=== PATIENT | male | born 1985 | race Caucasian/White ===

== ENCOUNTER 2017-04-26 10:49 | Inpatient (IN) | payer OTHER, BC ==
[2017-04-13 11:01] VITALS: BMI 43.0
--- NOTE | 2017-04-13 11:37 | PAT Medication Instructions ---
Service Date Apr 13, 2017. Current Home Medication List Acetaminophen (Tylenol), 2 TAB PO Q6 PRN for Pain Duloxetine HCl (Cymbalta), 1 CAP PO QAM Gabapentin (Neurontin), 300 MG PO TID PRN for Pain Medication Instructions For Your Scheduled Surgery - Take the following medications the morning of surgery with a sip of water: Acetaminophen (Tylenol), 2 TAB PO Q6 PRN for Pain (if needed) Duloxetine HCl (Cymbalta), 1 CAP PO QAM Gabapentin (Neurontin), 300 MG PO TID PRN for Pain (if needed) - Take the following medications as scheduled the night before surgery: Gabapentin (Neurontin), 300 MG PO TID PRN for Pain (if needed) Acetaminophen (Tylenol), 2 TAB PO Q6 PRN for Pain (if needed) If you have any questions please call us at [phone] or [phone] or [phone]
--- NOTE | 2017-04-13 12:07 | DIAGNOSTIC IMAGING REPORT ---
CHEST PREADMISSION(PA/LAT) CLINICAL HISTORY: PAT preoperative evaluation COMPARISON STUDY: No previous studies for comparison. FINDINGS: The bones soft tissues and hemidiaphragms are normal. The cardiomediastinal silhouette is normal. The lungs are clear. The pulmonary vasculature is normal. IMPRESSION: Negative chest. The above report was generated using voice recognition software. It may contain grammatical, syntax or spelling errors. Electronically signed by: Rachid Britton M.D. 04/13/2017 12:06 PM Dictated Date/Time: 04/13/2017 12:05 PM
[2017-04-13 12:15] LABS: BASO % 0.9 %; BASO ABS # 0.06 K/uL (0-0.2); COMPLETE YES; EOS % 3.1 %; HEMATOCRIT 43.1 % (42-52); IG% 0.4 %; LYMPH % 30.3 %; LYMPH ABS # 2.06 K/uL (1.2-3.4); MEAN CELL VOLUME 92.3 fL (80-100); MEAN CORPUSCULAR HEMOGLOBIN 31.9 pg (25-34); MEAN CORPUSCULAR HGB CONC 34.6 g/dl (32-36); MEAN PLATELET VOLUME 9.8 fL (7.4-10.4); MONO % 9.3 %; PLATELET COUNT 273 K/uL (130-400); RED BLOOD COUNT 4.67 M/uL (4.7-6.1)
[2017-04-13 12:17] LABS: URINE APPEARANCE CLEAR (CLEAR); URINE BILIRUBIN NEG (NEG); URINE COLOR YELLOW; URINE NITRITE NEG (NEG); URINE PH 6.5 (4.5-7.5); URINE SPECIFIC GRAVITY 1.029 (1.000-1.030); UROBILINOGEN NEG (NEG); ZZUR CULT IF INDIC CLEAN CATCH NO
[2017-04-13 12:20] LABS: MANUAL MICROSCOPIC REQUIRED? NO; REVIEW REQ? NO
[2017-04-13 12:31] LABS: BUN/CREATININE RATIO 10.7 (10-20); CALCIUM 9.1 mg/dl (8.5-10.1); CREATININE 0.87 mg/dl (0.60-1.40); POTASSIUM 4.3 mmol/L (3.5-5.1)
[~2017-04-26] VITALS: Ht 175.3 cm; Wt 132.6 kg
[~2017-04-26 10:49] MED LIST: ACET-1256 PO; ATROPINE SULFATE 0.1 MG/ML 5ML SYR IV PRN; CEFAZOLIN 3000 MG/65 ML D5W IV SCH; CYM/30 PO; EpHEDrine SULFATE INJ 50 MG/ML AMP IV PRN; FENTANYL CITRATE INJ 50 MCG/1 ML 2 ML VIAL IV PRN; GABA-113 PO; HYDROmorphone INJ 1 MG/ML SYR IV PRN; LACTATED RINGER'S 1000ML 1,000 ML IV SCH; ONDANSETRON INJ 2 MG/ML 2 ML VIAL IV PRN
[2017-04-26 11:48] VITALS: BP 132/81; PULSE 77; TEMP 36.6; O2SAT 96; Ht 175.3 cm; Wt 132.6 kg
[2017-04-26] MEDS ORDERED: FENTANYL CITRATE INJ 50 MCG/1 ML 2 ML VIAL ONE ×3 (12:54→16:15)
[2017-04-26] MEDS ORDERED: MIDAZOLAM HCL 1 MG/ML 2ML VIAL ONE (12:54)
--- NOTE | 2017-04-26 13:16 | History & Physical Bridge Note ---
H&P Re-Evaluation Bridge Note: I have examined the patient, reviewed the History & Physical and in the interval since the performance of the History & Physical I have noted the following changes of clinical significance: No changes noted
--- NOTE | 2017-04-26 13:17 | History and Physical ---
History & Physical Date Apr 26, 2017. Chief Complaint Back and leg pain History of Present Illness The patient is a 32 year old male with complaints of back and leg pain Additional History Hepatic Disease: No Endocrine Disorder: No Kidney Disease: No Hypertension: No Heart Disease: No Bleeding Tendencies: No Infectious Diseases: No Allergies Coded Allergies: No Known Allergies (Unverified , 04/26/17) Home Medications Scheduled Duloxetine HCl (Cymbalta), 1 CAP PO QAM Scheduled PRN Acetaminophen (Tylenol), 2 TAB PO Q6 PRN for Pain Gabapentin (Neurontin), 300 MG PO TID PRN for Pain Physical Examination Skin: warm/dry, no rash Eyes: normal inspection, EOMI, sclerae normal ENT: normal ENT inspection, pharynx normal Head: normocephalic, atraumatic Neck: supple, no adenopathy, trachea midline Respiratory/Chest: lungs clear, normal breath sounds, no respiratory distress Cardiovascular: regular rate, rhythm, no edema, no murmur Abdomen / GI: normal bowel sounds, non tender Back: normal inspection Extremities: normal inspection, normal range of motion Neurologic/Psych: no motor/sensory deficits, alert, normal reflexes, oriented x 3 Diagnosis Lumbar spinal stenosis Plan of Treatment Lumbar decompression fusion L5-S1
[2017-04-26] MEDS ORDERED: BUPIVACAINE/EPINEPHRINE 0.5% MPF 1:200,000 30 ML VIAL ONE (13:35)
[2017-04-26] MEDS ORDERED: BACITRACIN 50000 UNIT VIAL ONE (13:35)
[2017-04-26] MEDS ORDERED: HYDROmorphone INJ 2 MG/ML SYR/VIAL ONE ×2 (14:08→16:50)
[2017-04-26] MEDS ORDERED: PHENYLEPHRINE 100MCG/ML 5ML SYR ONE (14:32)
[2017-04-26] MEDS ORDERED: LARYING-O-JET KIT (LTA) ONE ×2 (14:32)
[2017-04-26] MEDS ORDERED: ONDANSETRON INJ 2 MG/ML 2 ML VIAL ONE (14:32)
[2017-04-26] MEDS ORDERED: ROCURONIUM BROMIDE 10 MG/ML 5 ML VIAL IV ONE (14:32)
[2017-04-26] MEDS ORDERED: PROPOFOL IV EMULSION 10 MG/ML 20 ML VIAL IV ONE (14:32)
[2017-04-26] MEDS ORDERED: ESMOLOL HCL 10 MG/ML 10 ML VIAL ONE (14:32)
[2017-04-26] MEDS ORDERED: DEXAMETHASONE SOD INJ 4 MG/ML VIAL ONE (14:32)
[2017-04-26] MEDS ORDERED: LIDOCAINE HCL 2% 2 ML VIAL (20MG/ML) ONE (14:32)
[2017-04-26] MEDS ORDERED: FLOSEAL HEMOSTATIC MATRIX 10ML TOP ONE (15:25)
[2017-04-26] MEDS ORDERED: SODIUM CHLORIDE 0.9% 1000ML 1,000 ML IV SCH (15:31)
--- NOTE | 2017-04-26 15:37 | [facility] Operative Report ---
Operative Report Operative Date Apr 26, 2017. Pre-Operative Diagnosis Lumbar Spinal Stenosis Post-Operative Diagnosis Same Procedure(s) Performed #1 lumbar decompression medial facetectomies foraminotomies L4 5 L5-S1. #2 posterior spinal fusion L5-S1. #3 placement posterior inch rotation L5-S1. #4 interbody fusion L5-S1. #5 placement peek cage 12 x 26 mm at L5-S1. #6 placement of locally harvested morcellized autograft and posterior gutters. #7 placement of ostial amp bone graft in the interbody space and posterior lateral gutters. Surgeon Dr. Braden Estrada Continuous Process Machine Operator Surgeon(s) Estephania Allred PA-C Findings Herniated was pulposus spinal stenosis L5-S1 Specimens none per surgeon Description of Procedure Patient was met with preoperatively case discussed all questions are dressed. That point patient was taken to the operative suite underwent intubation placed in a prone position the Shriaz table on top Armin frame. All bony prominences were well-padded eyes inspected to ensure no external pressure. Lumbar spines prepped and draped nostril fashion. Sharp dissection with the assistance of Bovie cautery was performed onto an exposing the lamina and transverse processes of L5 and the sacral alar bilaterally. From a caudal to cephalad fashion complete laminectomy of L5 partial laminectomy of L4 was performed. We performed medial facetectomies foraminotomies to address severe neural encroachment foraminal disease. Identified a massive disc herniation 51 level on the left with significant encroachment of the traversing S1 nerve root. This was removed in its entirety. After this complete pedicle screws are placed in L5-S1 levels bilaterally with assistance of fluoroscopy the purposes mo placed. Through a transforaminal port and left complete discectomy was performed and plate created to subcortical bleeding bone and a 12 x 26 mm peek cage filled with ostial amp tapped in position. Rods were then locked and final position bilaterally. The transverse processes of L5 and the sacral alar burred to subcortical bleeding bone. Ostial amp and locally harvested morcellized autograft was placed in the posterior lateral gutters. 15 round MURTAZA drain inserted. Incision was then closed with 1 Vicryl in the fascia 2-0 Vicryl subcutaneously for Monocryl for final skin closure Steri- Strip sterile dressing placed patient with continued PACU stable condition. Please note Estephania Vernon was present throughout the entire procedure involved in patient positioning complex portions of the procedure and final skin closure. I attest to the content of the Intraoperative Record and any orders documented therein. Any exceptions are noted below.
--- NOTE | 2017-04-26 15:43 | DIAGNOSTIC IMAGING REPORT ---
LUMBAR SPINE, INTRAOPERATIVE FLUOROSCOPY HISTORY: L5-S1 decompression and fusion. FLUOROSCOPY TIME: 22 seconds. FINDINGS: Intraoperative fluoroscopy was provided for the lumbar spine. 2 fluoroscopic spot images were obtained. Posterior decompression and fusion at L5-S1 without pedicle screws and rods. The hardware appears intact. IMPRESSION: Fluoroscopy provided for a L5-S1 posterior decompression and fusion. Electronically signed by: Omega Love M.D. 04/26/2017 3:42 PM Dictated Date/Time: 04/26/2017 3:41 PM
[2017-04-26] MEDS ORDERED: ACETAMINOPHEN 500 MG TAB PO PRN (15:45)
[2017-04-26] MEDS ORDERED: NALOXONE HCL 0.4 MG/1 ML VIAL/CARP IV PRN ×2 (15:45)
[2017-04-26] MEDS ORDERED: DO NOT ADMINISTER FLU VACCINE PRN ×3 (15:45)
[2017-04-26] MEDS ORDERED: MAGNESIUM HYDROXIDE SUSP 30 ML UDC PO PRN (15:45)
[2017-04-26] MEDS ORDERED: PROMETHAZINE HCL INJ 12.5 MG in SODIUM CHLORIDE 0.9% 50ML 50 ML IV PRN (15:45)
[2017-04-26] MEDS ORDERED: ALUMINUM/MAGNESIUM SUSP 30 ML UDC PO PRN (15:45)
[2017-04-26] MEDS ORDERED: hydrOXYzine HCL 25 MG TAB PO PRN (15:45)
[2017-04-26] MEDS ORDERED: GABAPENTIN 300 MG CAP PO PRN (15:45)
[2017-04-26] MEDS ORDERED: LORAZEPAM 0.5 MG TAB PO PRN (15:45)
[2017-04-26] MEDS ORDERED: BISACODYL 10 MG SUPP PR PRN (15:45)
[2017-04-26] MEDS ORDERED: METOCLOPRAMIDE HCL INJ 5 MG/ML 2 ML VIAL IV PRN (15:45)
[2017-04-26] MEDS ORDERED: FAMOTIDINE 20 MG TAB PO PRN (15:45)
[2017-04-26] MEDS ORDERED: ONDANSETRON INJ 2 MG/ML 2 ML VIAL IV PRN ×2 (15:45→17:00)
[2017-04-26] MEDS ORDERED: DO NOT ADMINISTER PNEUMOCOCCAL VACCINE PRN ×2 (15:45)
[2017-04-26] MEDS ORDERED: ACETAMINOPHEN IV 100 ML IV PRN (15:45)
[2017-04-26] MEDS ORDERED: LORAZEPAM INJ 0.5 MG in SYRINGE 0.75 ML IV PRN (15:45)
[2017-04-26] MEDS ORDERED: SOD PHOSPHATE/SOD BIPHOSPHATE ENEMA 132 ML BTL PR PRN (15:45)
[2017-04-26] MEDS: HYDROmorphone HCL 0.5MG/ML 50 ML CASSETTE IV PRN ×3 (16:19→23:08)
[2017-04-26] MEDS ORDERED: ATROPINE SULFATE 0.1 MG/ML 5ML SYR IV PRN (17:00)
[2017-04-26] MEDS ORDERED: FENTANYL CITRATE INJ 50 MCG/1 ML 2 ML VIAL IV PRN (17:00)
[2017-04-26] MEDS ORDERED: HYDROmorphone INJ 1 MG/ML SYR IV PRN (17:00)
[2017-04-26] MEDS ORDERED: EpHEDrine SULFATE INJ 50 MG/ML AMP IV PRN (17:00)
--- NOTE | 2017-04-26 17:21 | Anesthesiology Progress Note ---
Anesthesia Post Op Note Date & Time Apr 26, 2017 at 17:21 Vital Signs Pain Intensity: 3 Vital Signs Past 12 Hours Date Time Temp Pulse Resp B/P (MAP) Pulse Ox O2 Delivery O2 Flow Rate FiO2 04/26/17 17:10 36.6 84 16 120/66 97 Nasal Cannula 4 Oxymask 04/26/17 17:00 79 16 121/64 96 Nasal Cannula 4 Oxymask 04/26/17 16:50 79 16 137/61 96 Nasal Cannula 4 Oxymask 04/26/17 16:40 80 16 122/70 95 Nasal Cannula 2 Oxymask 04/26/17 16:30 80 16 124/63 95 Nasal Cannula 2 Oxymask 04/26/17 16:20 80 16 127/77 95 Oxymask 10 04/26/17 16:10 80 16 129/96 95 Oxymask 10 04/26/17 16:00 37.1 80 16 114/65 95 Oxymask 10 04/26/17 11:48 36.6 77 18 132/81 96 Room Air Notes Mental Status: alert / awake / arousable, participated in evaluation Pt Amnestic to Procedure: Yes Nausea / Vomiting: adequately controlled Pain: adequately controlled Airway Patency, RR, SpO2: stable & adequate BP & HR: stable & adequate Hydration State: stable & adequate Anesthetic Complications: no major complications apparent
[2017-04-26] MEDS: LACTATED RINGER'S 1000ML 1,000 ML IV SCH ×2 (17:30→21:34)
[2017-04-26 18:05] VITALS: BP 124/69; PULSE 84; TEMP 36.5; O2SAT 98
[2017-04-26 18:35] VITALS: BP 144/81; PULSE 105; TEMP 36.6; O2SAT 97
[2017-04-26 19:35] VITALS: BP 127/75; PULSE 86; TEMP 36.6; O2SAT 95
[2017-04-26 20:45] VITALS: BP 124/71; PULSE 88; TEMP 36.5; O2SAT 96
[2017-04-26] MEDS: DOCUSATE SODIUM/SENNA 50/8.6MG TAB PO SCH (21:18)
[2017-04-26] MEDS: DEXAMETHASONE INJ 6 MG in SYRINGE 0 ML IV SCH (21:18)
[2017-04-26] MEDS: CEFAZOLIN IV 2,000 MG in DEXTROSE 5% 50ML 50 ML IV SCH (21:30)
[2017-04-26 22:52] VITALS: BP 124/73; PULSE 88; TEMP 36.8; O2SAT 92
[2017-04-27 03:38] VITALS: BP 122/76; PULSE 85; TEMP 36.7; O2SAT 92
[2017-04-27] MEDS ORDERED: NURSING VERBAL MED ORDER ONE (04:30)
[2017-04-27] MEDS: CEFAZOLIN IV 2,000 MG in DEXTROSE 5% 50ML 50 ML IV SCH (05:35)
[2017-04-27] MEDS: DEXAMETHASONE INJ 6 MG in SYRINGE 0 ML IV SCH ×2 (05:37→14:07)
[2017-04-27] MEDS ORDERED: DC PCA SCH (06:00)
[2017-04-27] MEDS ORDERED: HYDROmorphone INJ 0.5 MG/0.5 ML SYR IV PRN (06:00)
[2017-04-27 06:07] LABS: BASO % 0.1 %; BASO ABS # 0.01 K/uL (0-0.2); COMPLETE YES; HEMATOCRIT 37.8 % (42-52); IG% 0.2 %; LYMPH % 6.9 %; LYMPH ABS # 1.13 K/uL (1.2-3.4); MEAN CELL VOLUME 89.6 fL (80-100); MEAN CORPUSCULAR HEMOGLOBIN 32.9 pg (25-34); MEAN CORPUSCULAR HGB CONC 36.8 g/dl (32-36); MEAN PLATELET VOLUME 9.2 fL (7.4-10.4); MONO % 3.3 %; NEUT % 89.5 %; PLATELET COUNT 250 K/uL (130-400); RED BLOOD COUNT 4.22 M/uL (4.7-6.1); WHITE BLOOD COUNT 16.46 K/uL (4.8-10.8)
[2017-04-27 06:38] LABS: BUN/CREATININE RATIO 12.6 (10-20); CALCIUM 8.4 mg/dl (8.5-10.1); CREATININE 0.95 mg/dl (0.60-1.40); POTASSIUM 4.4 mmol/L (3.5-5.1)
[2017-04-27] MEDS: OXYCODONE HCL IR 5 MG TAB (IMMEDIATE RELEASE) PO PRN ×4 (07:24→23:52)
[2017-04-27] MEDS: DULOXETINE (CYMBALTA) 30 MG CAP PO SCH (08:59)
--- NOTE | 2017-04-27 09:01 | Progress Note ---
Progress Note Date of Service Apr 27, 2017. Progress Note Pain is controlled. Leg symptoms improved. On exam he is comfortable sitting in chair as good strength testing. MURTAZA drain decreasing appropriately. Assessment status post lumbar decompression fusion. Planned this time initiate physical therapy advance his bowel regiment anticipate possible home Monday with home health.
[2017-04-27] MEDS: KETOROLAC TROMETHAMINE 30 MG/ML VIAL IV PRN ×2 (09:57→20:10)
--- NOTE | 2017-04-27 10:40 | Anesthesiology Progress Note ---
Anesthesia Post Op Note Date & Time Apr 27, 2017 at 10:39 Vital Signs Pain Intensity: 6.0 Vital Signs Past 12 Hours Date Time Temp Pulse Resp B/P (MAP) Pulse Ox O2 Delivery O2 Flow Rate FiO2 04/27/17 07:20 Room Air 04/27/17 03:38 36.7 85 16 122/76 (91) 92 Room Air 04/27/17 00:00 Room Air 04/26/17 22:52 36.8 88 16 124/73 (90) 92 Room Air Notes Mental Status: alert / awake / arousable, participated in evaluation Pt Amnestic to Procedure: Yes Nausea / Vomiting: adequately controlled Pain: adequately controlled Airway Patency, RR, SpO2: stable & adequate BP & HR: stable & adequate Hydration State: stable & adequate Anesthetic Complications: no major complications apparent
[2017-04-27 10:41] VITALS: BP 152/74; PULSE 90; O2SAT 95
[2017-04-27 10:48] VITALS: BP 149/74; PULSE 89; TEMP 36.6; O2SAT 91
[2017-04-27 16:10] VITALS: BP 145/65; PULSE 84; TEMP 36.8; O2SAT 92
[2017-04-27] MEDS: DOCUSATE SODIUM/SENNA 50/8.6MG TAB PO SCH (20:58)
[2017-04-27 23:01] VITALS: BP 147/91; PULSE 76; TEMP 36.5; O2SAT 95
[2017-04-28] MEDS ORDERED: NURSING VERBAL MED ORDER ONE (04:00)
[2017-04-28] MEDS ORDERED: POLYETHYLENE (MIRALAX) 17 GM PACK PO SCH (06:00)
[2017-04-28] MEDS: OXYCODONE HCL IR 5 MG TAB (IMMEDIATE RELEASE) PO PRN ×2 (06:04→11:10)
[2017-04-28] MEDS ORDERED: COUGH DROP (SUGAR FREE) LOZ 24 LOZ/1 BOX ONE (06:08)
[2017-04-28 07:24] VITALS: BP 118/71; PULSE 73; TEMP 36.3; O2SAT 95
[2017-04-28] MEDS ORDERED: RXC5 PO (07:37)
[2017-04-28] MEDS: KETOROLAC TROMETHAMINE 30 MG/ML VIAL IV PRN (07:38)
--- NOTE | 2017-04-28 07:38 | Discharge Instructions ---
Discharge Instructions Date of Service Apr 28, 2017. Admission Reason for Admission: Lumbar Spinal Stenosis Discharge Discharge Diagnosis / Problem: lumbar stenosis Discharge Goals Goal(s): Improve function Activity Recommendations Activity Limitations: per Instructions/Follow-up section . Instructions / Follow-Up Instructions / Follow-Up ACTIVITY RECOMMENDATIONS: SELF CARE INSTRUCTIONS AFTER THORACIC/LUMBAR FUSIONS 1. You may walk to your tolerance. It is good exercise for your legs and back. Expect some back and intermittent leg aches and pains. 2. You may perform "counter-top" level activities (make a sandwich, peg with a project, etc.). 3. No bending or lifting of more than 10 pounds or back twisting of any nature (roll like a log when turning in bed). 4. You may ride in a car for 20-30 minutes at a time. No driving until after your first visit with your doctor. 5. Frequent changes of position and restricting sitting to 30 minutes at a time will help limit the amount of back spasms and stiffness you may experience. 6. You may discontinue the use of ambulatory aids (cane, crutches, etc.) once your strength and confidence allow. 7. You may marine engineering consultant the shower and let water strike your incision when you arrive home at least once daily. Do not take a tub bath, sit in a hot tub or go into a swimming pool until after your first recheck in the office. SPECIAL CARE INSTRUCTIONS: VERY IMPORTANT TO READ AND REVIEW A. Your surgical incision has been closed with a cosmetic suture under the skin that will dissolve in about 6 weeks. In 14 days, you can use a pair of clean scissors and cut the suture that is left outside of the skin at the ends of your incision. 1. The small skin tapes can be removed 7 days after surgery if they have not fallen off by that point. 2. You may keep the wound open to air as much as possible to promote healing after post-op day number 5 unless told otherwise by your doctor. 3. If you think the wound looks like it is becoming infected (redness or worsening drainage) and/or you are experiencing fever, chill or worsening back pain and muscle spasms, contact the office so that we may evaluate you as soon as possible. B. Complications are uncommon, but please contact us if you have any signs or symptoms of: 1. wound infection (fever higher than 102.5 degrees F, redness, separation of wound, drainage, or increasing pain from the incision) 2. blood clots in legs (pain, swelling, redness and warmth in legs) 3. urinary tract infection (fever higher than 102.5 degrees F, burning upon urination or increased frequency of urination) 4. nerve problems (inability to walk on your toes or heels, numbness, loss of bowel or bladder control) 5. any other symptoms that concern you C. Please call the office at if you have any concerns or questions about your operation or recovery. D. No smoking! Smoking drastically decreases the chance of a solid fusion. E. Do not take any anti-inflammatory medications (Indocin, Advil, Motrin, Aspirin, Naprosyn, etc.) as these may inhibit the chance of a solid fusion. Tylenol is okay to take for pain. MANAGING PAIN AFTER SPINAL SURGERY 1. Narcotic medication is intended for short-term use and will be provided for surgical pain. Surgical pain usually lasts for a period of 4-6 weeks. Narcotic medication includes Percocet, Vicodin, Darvocet, Tylenol #3 or Lortab. 2. Longer-term pain is more appropriately treated with non-narcotic medication such as Tylenol ES. 3. Muscle spasm is not appropriately treated with narcotics. Muscle relaxers such as Soma, Flexeril or Skelaxin can be used along with Tylenol ES. 4. Remember that we all live with some "aches and pains". This is not unusual or uncommon after an injury or as we get older. a. Back pain is expected and may include muscle spasms for 4 to 6 weeks after surgery. The pain should gradually improve. If the pain worsens for no apparent reason, please contact the office. b. Intermittent leg pain may also be experienced and should not be concerned about unless it worsens for no apparent reason. If so, please contact the office. 5. We will provide appropriate medication within the normal guidelines of their prescribed use. We will also be very cautious and aware of potential abuse and extended duration of patients' medication needs. a. Pain medications are for your comfort and to assist with sleep and rest so that the tissue can heal. They are not provided in order to return to normal activity and should not be used through the day. To do so or worsening pain at night can result from ongoing tissue damage and development of tolerance to the prescribed medicine. 6. Please allow 2-3 days to process refills. Prescriptions will not be mailed but must be picked up at the office. FOLLOW UP VISIT: Keep your scheduled follow-up appointment. Any questions, please call the office at . Current Hospital Diet Patient's current hospital diet: Regular Diet Discharge Diet Recommended Diet: Regular Diet Procedures Procedures Performed: #1 lumbar decompression medial facetectomies foraminotomies L4 5 L5-S1. #2 posterior spinal fusion L5-S1. #3 placement posterior inch rotation L5-S1. #4 interbody fusion L5-S1. #5 placement peek cage 12 x 26 mm at L5-S1. #6 placement of locally harvested morcellized autograft and posterior gutters. #7 placement of ostial amp bone graft in the interbody space and posterior lateral gutters. Pending Studies Studies pending at discharge: no Medical Emergencies . Who to Call and When: Medical Emergencies: If at any time you feel your situation is an emergency, please call 911 immediately. . Non-Emergent Contact Non-Emergency issues call your: Primary Care Provider . "Provider Documentation" section prepared by Braden Estrada. . VTE Core Measure Inpt VTE Proph given/why not?: Luis Fernando Andre, SCD's
[2017-04-28] MEDS: DULOXETINE (CYMBALTA) 30 MG CAP PO SCH (07:41)
[2017-04-28 11:21] VITALS: BP 118/71; PULSE 73; TEMP 36.3; O2SAT 95
--- NOTE | 2017-04-28 11:42 | Discharge Summary ---
Orthopedic Discharge Summary Admission Date/Reason Apr 26, 2017 at 13:30 Lumbar Spinal Stenosis. Discharge Date/Disposition Apr 28, 2017 Home with services Diagnosis Principal Diagnosis: Lumbar spinal stenosis with herniated nucleus pulposus Admission Physical Exam As per Admitting History & Physical. Hospital Course Patient underwent lumbar decompression fusion tolerated this well as taken to the orthopedic floor postoperatively. Postoperative day #1 is up and amatory progressed nicely through postop day #2. Leg symptoms markedly improved. Subsequently is discharged home with home health. Discharge orders and instructions found in the chart for further review. Discharge Instructions Please refer to the electronic Patient Visit Report (Discharge Instructions) for additional information.
== END 2017-04-28 14:00 | disposition home health service (06) | DRG 460 ==
LOC: EDBD → C.ACU 10:49 → C.3E 13:30 → ENRESERV 17:05
PROVIDERS: ADMIT Orthopaedic Surgery Orthopaedic Surgery of the Spine; ATTEND Orthopaedic Surgery Orthopaedic Surgery of the Spine
PROC: 0SG10J1 Fusion of 2 or more Lumbar Vertebral Joints with Synthetic Substitute, Posterior Approach, Posterior Column, Open Approach (ICD-10-PCS; principal; 2017-04-26 13:35)
DX: M48.061 Spinal stenosis, lumbar region without neurogenic claudication (principal); M51.26 Other intervertebral disc displacement, lumbar region